=== PATIENT | male | born 1975 | race Caucasian/White ===

== ENCOUNTER 2016-12-09 12:07 | Emergency (ER) | payer BC ==
[~2016-12-09] VITALS: Ht 182.9 cm; Wt 90.9 kg
[2016-12-09] MEDS ORDERED: PERCOCET 5/31 TABLET PO (17:05)
[2016-12-09 17:16] VITALS: BP 109/63
== END 2016-12-09 17:34 | disposition home or self-care (01) ==
LOC: EME 12:07
DX: S22.069A Unspecified fracture of T7-T8 vertebra, initial encounter for closed fracture (principal); S22.079A Unspecified fracture of T9-T10 vertebra, initial encounter for closed fracture; V00.328A Other snow-ski accident, initial encounter; Y92.89 Other specified places as the place of occurrence of the external cause; Y93.23 Activity, snow (alpine) (downhill) skiing, snowboarding, sledding, tobogganing and snow tubing
CPT/HCPCS: 70450; 71010; 72125; 72128; 72131; 99281; 99284; J1885; J2270; J2405